=== PATIENT | male | born 1975 | race Caucasian/White ===

== ENCOUNTER 2018-06-25 19:44 | Emergency (ER) | payer OTHER ==
[~2018-06-25] VITALS: Ht 172.7 cm; Wt 90.7 kg
[2018-06-25 21:06] LABS: APPEARANCE,URINE Clear (CLEAR); BILIRUBIN,URINE Negative (NEGATIVE); BLOOD, URINE Small Ery/uL (NEGATIVE); COLOR,URINE Yellow (YELLOW); KETONES,URINE Negative (NEGATIVE); LEUKOCYTE ESTERASE ,URINE Negative (NEGATIVE); NITRITE, URINE Negative (NEGATIVE); PROTEIN,URINE Negative (NEGATIVE); UGLUCOSE Negative (NEGATIVE); UROBILINOGEN,URINE 0.2 EU/dL (0.2)
[2018-06-25 21:12] LABS: BACTERIA,URINE Rare /HPF (None Seen)
[2018-06-25 21:13] LABS: SQUAMOUS EPITHELIAL CELL,UR Rare /HPF (None Seen); WBC,URINE 0-2 /HPF (0-3)
[2018-06-26] MEDS ORDERED: IV NS 0.9% 500 ML BAG IV ONE (00:30)
--- NOTE | 2018-06-26 00:35 | NUR ---
PT C/O LOWER ABD & R TESTICLE PAIN RADIATES DOWN R LEG X 10 DAYS. -N/V/D. PT STATES HE HAS BEEN URINATING MORE FREQUENTLY, DENIES DYSURIA. SKIN WNL. PT IS AAOX4. NO S/S OF ACUTE DISTRESS NOTED. RR EVEN AND UNLABORED. 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 PT SAFETY AND COMFORT MEASURES IN PLACE. BEDSIDE FOR EVAL
[2018-06-26 00:43] LABS: BASOPHILS % (AUTO) 0.4 % (0.0-2.0); HEMATOCRIT 50 % (39-51); HEMOGLOBIN 16.8 g/dL (13.5-17.5); LYMPHOCYTES # (AUTO) 3.3 /CMM (0.8-4.8); LYMPHOCYTES % (AUTO) 31.8 % (20.0-44.0); MEAN CORPUSCULAR HGB CONC 34 g/dl (31.0-36.0); MEAN CORPUSCULAR VOLUME 95 fL (80-96); MONOCYTES # (AUTO) 0.6 /CMM (0.1-1.30); MONOCYTES % (AUTO) 5.3 % (2.0-12.0); NEUTROPHILS # (AUTO) 6.3 /CMM (1.8-8.9); NEUTROPHILS % (AUTO) 60.5 % (43.0-81.0); PLATELET COUNT (AUTO) 224 /CMM (150-450); RDW COEFFICIENT OF VARIATION 12.5 (11.5-15.0); RED BLOOD CELL COUNT(AUTO) 5.26 MIL/uL (4.5-6.0); WHITE BLOOD COUNT (AUTO) 10.4 K/uL (4.3-11.0)
[2018-06-26 01:02] LABS: ALBUMIN 4.3 g/dL (3.4-5.0); BILIRUBIN,DIRECT 0.3 mg/dL (0.0-0.2); BILIRUBIN,TOTAL 1.3 mg/dL (0.2-1.0); CALCIUM, SERUM 8.9 mg/dL (8.5-10.1); CREATININE 0.9 mg/dL (0.6-1.3); POTASSIUM 3.6 mmol/L (3.5-5.1)
[2018-06-26] MEDS ORDERED: KETOROLAC TROMETHAMINE INJ 30 MG/ML VIAL ONE (02:58)
[2018-06-26] MEDS ORDERED: KETOROLAC TROMETHAMINE INJ 30 MG/ML VIAL IV ONE (03:00)
--- NOTE | 2018-06-26 03:09 | NUR ---
Patient discharged to home in stable condition. Written and verbal after care instructions given. Patient verbalizes understanding of instruction.IV removed. Catheter intact and site benign. Pressure and 4x4 applied to site. No bleeding noted.
[2018-06-26 03:10] VITALS: BP 144/79
== END 2018-06-26 03:12 | disposition home or self-care (01) ==
LOC: ER 19:45
DX: R10.84 Generalized abdominal pain (principal); E80.6 Other disorders of bilirubin metabolism; R74.0 Nonspecific elevation of levels of transaminase and lactic acid dehydrogenase [LDH]; F17.200 Nicotine dependence, unspecified, uncomplicated
CPT/HCPCS: 36415; 76705-TC; 80048-TC; 80076-TC; 81000-TC; 83690-TC; 85025-TC; A4606; J1885; J7040; Z7610

== ENCOUNTER 2020-08-30 16:55 | Emergency (ER) | payer OTHER ==
[~2020-08-30] VITALS: Ht 172.7 cm; Wt 69.9 kg
--- NOTE | 2020-08-30 17:12 | NUR ---
BLOOD DRAWN AND SENT TO LAB.
--- NOTE | 2020-08-30 17:21 | NUR ---
Patient discharged to home in stable condition. Written and verbal after care instructions given. Patient verbalizes understanding of instruction.
[2020-08-30 17:41] LABS: BASOPHILS # (AUTO) 0.1 /CMM (0.0-0.2); BASOPHILS % (AUTO) 0.9 % (0.0-2.0); EOSINOPHILS % (AUTO) 0.2 % (0.0-6.0); HEMATOCRIT 51 % (39-51); HEMOGLOBIN 17.4 g/dL (13.5-17.5); LYMPHOCYTES # (AUTO) 1.6 /CMM (0.8-4.8); LYMPHOCYTES % (AUTO) 11.2 % (20.0-44.0); MEAN CORPUSCULAR HGB CONC 34 g/dl (31.0-36.0); MEAN CORPUSCULAR VOLUME 97 fL (80-96); MONOCYTES # (AUTO) 0.6 /CMM (0.1-1.30); MONOCYTES % (AUTO) 4.1 % (2.0-12.0); NEUTROPHILS # (AUTO) 12.1 /CMM (1.8-8.9); NEUTROPHILS % (AUTO) 83.6 % (43.0-81.0); PLATELET COUNT (AUTO) 207 /CMM (150-450); WHITE BLOOD COUNT (AUTO) 14.4 K/uL (4.3-11.0)
[2020-08-30 17:45] LABS: CALCIUM, SERUM 9.2 mg/dL (8.5-10.1); CARBON DIOXIDE 25 mmol/L (21-32); CHLORIDE 101 mmol/L (98-107); CREATININE 0.9 mg/dL (0.6-1.3); GLUCOSE 93 mg/dL (74-106); POTASSIUM 4.5 mmol/L (3.5-5.1); SODIUM SERUM 138 mmol/L (136-145); UREA NITROGEN, BLOOD 16 mg/dL (7-18)
[2020-08-30 17:57] LABS: B-TYPE NATRIURETIC PEPTIDE 95 PG/ML (0-125)
[2020-08-30] MEDS ORDERED: LABETALOL HCL (100MG) 100 MG TABLET ONE (18:03)
[2020-08-30] MEDS ORDERED: LABETALOL HCL (100MG) 100 MG TABLET PO ONE (18:30)
[2020-08-30 18:53] VITALS: BP 131/84
== END 2020-08-30 18:54 | disposition home or self-care (01) ==
LOC: ER 17:02
DX: R07.89 Other chest pain (principal); F11.10 Opioid abuse, uncomplicated; R00.2 Palpitations
CPT/HCPCS: 36415; 71045-TC; 80048-TC; 83880; 84484-TC; 85025-TC

== ENCOUNTER 2020-10-27 20:10 | Emergency (ER) | payer OTHER ==
[~2020-10-27] VITALS: Ht 175.3 cm; Wt 72.6 kg
--- NOTE | 2020-10-27 20:35 | NUR ---
BIBS FOR C/O L SIDED CP 06/05, NON- RADIATING X 2 HRS. "IT STARTED WHEN I WAS PLAYING W/ MY SON" WORSE ON PALPATION AND DEEP BREATHING . - SOB, -N/V, - H/A.
[2020-10-27 20:53] LABS: BASOPHILS # (AUTO) 0.1 /CMM (0.0-0.2); BASOPHILS % (AUTO) 0.6 % (0.0-2.0); HEMATOCRIT 42 % (39-51); HEMOGLOBIN 14.2 g/dL (13.5-17.5); LYMPHOCYTES # (AUTO) 3.8 /CMM (0.8-4.8); LYMPHOCYTES % (AUTO) 36.4 % (20.0-44.0); MEAN CORPUSCULAR HGB CONC 34 g/dl (31.0-36.0); MEAN CORPUSCULAR VOLUME 96 fL (80-96); MONOCYTES # (AUTO) 0.7 /CMM (0.1-1.30); MONOCYTES % (AUTO) 6.4 % (2.0-12.0); NEUTROPHILS # (AUTO) 5.7 /CMM (1.8-8.9); NEUTROPHILS % (AUTO) 55.6 % (43.0-81.0); PLATELET COUNT (AUTO) 236 /CMM (150-450); RED BLOOD CELL COUNT(AUTO) 4.39 MIL/uL (4.5-6.0); WHITE BLOOD COUNT (AUTO) 10.3 K/uL (4.3-11.0)
[2020-10-27 21:03] LABS: CALCIUM, SERUM 8.7 mg/dL (8.5-10.1); CARBON DIOXIDE 27 mmol/L (21-32); CHLORIDE 103 mmol/L (98-107); GLUCOSE 84 mg/dL (74-106); POTASSIUM 3.8 mmol/L (3.5-5.1); SODIUM SERUM 141 mmol/L (136-145); UREA NITROGEN, BLOOD 12 mg/dL (7-18)
--- NOTE | 2020-10-27 22:15 | NUR ---
IV removed. Catheter intact and site benign. Pressure and 4x4 applied to site. No bleeding noted.Patient discharged to home in stable condition. Written and verbal after care instructions given. Patient verbalizes understanding of instruction.
[2020-10-27 22:16] VITALS: BP 131/78
[2020-10-27] MEDS ORDERED: KETOROLAC TROMETHAMINE INJ 30 MG/ML VIAL IV ONE (22:30)
== END 2020-10-27 22:16 | disposition home or self-care (01) ==
LOC: ER 20:14
DX: R07.89 Other chest pain (principal)
CPT/HCPCS: 36415; 71045-TC; 80048-TC; 84484-TC; 85025-TC

== ENCOUNTER 2021-10-20 16:53 | Emergency (ER) | payer MEDICAID, OTHER ==
[~2021-10-20] VITALS: Ht 175.3 cm; Wt 86.2 kg
[2021-10-20 16:53] VITALS: BP 156/105
[2021-10-20] MEDS ORDERED: CLIN300C12 PO (17:44)
== END 2021-10-20 17:59 | disposition home or self-care (01) ==
LOC: ER 16:54
DX: L03.116 Cellulitis of left lower limb (principal); L73.1 Pseudofolliculitis barbae; F17.200 Nicotine dependence, unspecified, uncomplicated

== ENCOUNTER 2022-11-09 16:27 | Emergency (ER) | payer MEDICAID ==
[~2022-11-09] VITALS: Ht 167.6 cm; Wt 81.6 kg
[~2022-11-09 16:27] MED LIST: CLIN300C12 PO
--- NOTE | 2022-11-09 16:40 | NUR ---
"Im Having Chest Pain and feel Dizzy. Was seen in 4D ago and was told I have a blood infection"
--- NOTE | 2022-11-09 17:15 | NUR ---
established iv line left ac 20 g ,
--- NOTE | 2022-11-09 17:15 | NUR ---
blood sample obtained sent to lab
[2022-11-09 17:36] LABS: BASOPHILS % (AUTO) 0.3 % (0.0-2.0); EOSINOPHILS % (AUTO) 1.2 % (0.0-6.0); HEMATOCRIT 47 % (39-51); HEMOGLOBIN 15.7 g/dL (13.5-17.5); LYMPHOCYTES # (AUTO) 4.2 K/uL (0.8-4.8); LYMPHOCYTES % (AUTO) 36.2 % (20.0-44.0); MEAN CORPUSCULAR HGB CONC 34 g/dl (31.0-36.0); MEAN CORPUSCULAR VOLUME 93 fL (80-96); MONOCYTES # (AUTO) 0.6 K/uL (0.1-1.30); MONOCYTES % (AUTO) 5.4 % (2.0-12.0); NEUTROPHILS # (AUTO) 6.5 K/uL (1.8-8.9); NEUTROPHILS % (AUTO) 56.9 % (43.0-81.0); PLATELET COUNT (AUTO) 227 K/uL (150-450); RED BLOOD CELL COUNT(AUTO) 5.01 MIL/uL (4.5-6.0); WHITE BLOOD COUNT (AUTO) 11.5 K/uL (4.3-11.0)
--- NOTE | 2022-11-09 17:43 | NUR ---
urine sample obtained
[2022-11-09 17:50] LABS: BILIRUBIN,URINE NEGATIVE (NEGATIVE); COLOR,URINE YELLOW (YELLOW); LEUKOCYTE ESTERASE ,URINE NEGATIVE (NEGATIVE); NITRITE, URINE NEGATIVE (NEGATIVE); PROTEIN,URINE NEGATIVE (NEGATIVE); UGLUCOSE NEGATIVE (NEGATIVE); UROBILINOGEN,URINE 0.2 EU/dL (0.2)
[2022-11-09 18:03] LABS: BACTERIA,URINE None seen /HPF (None Seen); WBC,URINE 0-2 /HPF (0-3)
[2022-11-09 18:04] LABS: SQUAMOUS EPITHELIAL CELL,UR 0-2 /HPF (None Seen)
[2022-11-09 18:10] LABS: CARBON DIOXIDE 24 mmol/L (21-32); CHLORIDE 103 mmol/L (98-107); CREATININE 0.7 mg/dL (0.6-1.3); GLUCOSE 89 mg/dL (74-106); POTASSIUM 3.5 mmol/L (3.5-5.1); SODIUM SERUM 140 mmol/L (136-145); UREA NITROGEN, BLOOD 4 mg/dL (7-18)
[2022-11-09] MEDS ORDERED: LORAZEPAM INJ 2 MG/ML VIAL IV ONE (18:30)
[2022-11-09] MEDS ORDERED: KETOROLAC TROMETHAMINE INJ 30 MG/ML VIAL IV ONE (18:30)
[2022-11-09] MEDS ORDERED: LORAZEPAM INJ 2 MG/ML VIAL ONE (18:34)
[2022-11-09] MEDS ORDERED: KETOROLAC TROMETHAMINE 15 MG/ML VIAL ONE (18:34)
--- NOTE | 2022-11-09 18:44 | NUR ---
medicated as ordered.
--- NOTE | 2022-11-09 18:44 | NUR ---
md at bed side , patient waiting to be discharge
--- NOTE | 2022-11-09 19:02 | NUR ---
IV removed. Catheter intact and site benign. Pressure and 4x4 applied to site. No bleeding noted.
--- NOTE | 2022-11-09 19:02 | NUR ---
Patient discharged to home in stable condition. Written and verbal after care instructions given. Patient verbalizes understanding of instruction.
[2022-11-09 19:03] VITALS: BP 151/98
== END 2022-11-09 19:03 | disposition home or self-care (01) ==
LOC: ER 16:33
DX: R07.89 Other chest pain (principal); F17.200 Nicotine dependence, unspecified, uncomplicated; Z79.899 Other long term (current) drug therapy
CPT/HCPCS: 99285; 96374; 71045; 96375; 93005 ×2; 85025; 80048; 81001; 36415; 84484; 83880; J2060; J1885

== ENCOUNTER 2023-07-08 23:01 | Emergency (ER) | payer MEDICAID ==
[~2023-07-08] VITALS: Ht 172.7 cm; Wt 95.3 kg
[2023-07-09] LABS: BASOPHILS % (AUTO) 0.4 % (0.0-2.0); EOSINOPHILS # (AUTO) 0.2 K/uL (0.0-0.7); EOSINOPHILS % (AUTO) 1.5 % (0.0-6.0); HEMATOCRIT 48 % (39-51); HEMOGLOBIN 16.4 g/dL (13.5-17.5); LYMPHOCYTES # (AUTO) 3.8 K/uL (0.8-4.8); LYMPHOCYTES % (AUTO) 29.9 % (20.0-44.0); MEAN CORPUSCULAR HEMOGLOBIN 32 PG (26.0-33.0); MEAN CORPUSCULAR HGB CONC 34 g/dl (31.0-36.0); MEAN CORPUSCULAR VOLUME 93 fL (80-96); MONOCYTES # (AUTO) 0.7 K/uL (0.1-1.30); MONOCYTES % (AUTO) 5.5 % (2.0-12.0); NEUTROPHILS # (AUTO) 7.9 K/uL (1.8-8.9); NEUTROPHILS % (AUTO) 62.7 % (43.0-81.0); PLATELET COUNT (AUTO) 239 K/uL (150-450); RED BLOOD CELL COUNT(AUTO) 5.14 MIL/uL (4.5-6.0); RED CELL DISTRIBUTION WIDTH 12.9 % (11.5-15.0); WHITE BLOOD COUNT (AUTO) 12.6 K/uL (4.3-11.0)
[2023-07-09 00:09] LABS: INR 1.1 (0.91-1.10); PARTIAL THROMBOPLASTIN TIME 28.9 SEC (24.3-34.3); PROTHROMBIN TIME 11.6 SECS (9.2-11.1)
[2023-07-09 00:11] LABS: ALANINE AMINOTRANSFERASE 51 U/L (12-78); ALBUMIN 4.6 g/dL (3.4-5.0); ALKALINE PHOSPHATASE 60 U/L (46-116); ASPARTATE AMINOTRANSFERASE 19 U/L (15-37); BILIRUBIN,DIRECT 0.2 mg/dL (0.0-0.2); BILIRUBIN,TOTAL 0.7 mg/dL (0.2-1.0); CALCIUM, SERUM 9.7 mg/dL (8.5-10.1); CARBON DIOXIDE 25 mmol/L (21-32); CHLORIDE 102 mmol/L (98-107); CREATININE 0.8 mg/dL (0.6-1.3); GLUCOSE 84 mg/dL (74-106); POTASSIUM 3.6 mmol/L (3.5-5.1); SODIUM SERUM 138 mmol/L (136-145); TOTAL PROTEIN, SERUM 8.7 g/dL (6.4-8.2); UREA NITROGEN, BLOOD 11 mg/dL (7-18)
[2023-07-09 00:50] VITALS: BP 145/105; TEMP 97.8; O2SAT 99
== END 2023-07-09 00:50 | disposition home or self-care (01) ==
LOC: ER 23:06
DX: R07.89 Other chest pain (principal); F17.210 Nicotine dependence, cigarettes, uncomplicated; Z79.899 Other long term (current) drug therapy
CPT/HCPCS: 36415; 71045-TC; 80048-TC; 80076-TC; 84484-TC; 85025-TC; 85730-TC

== ENCOUNTER 2024-12-24 15:12 | Emergency (ER) | payer MEDICAID ==
[~2024-12-24] VITALS: Ht 172.7 cm; Wt 99.8 kg
[2024-12-24 15:26] VITALS: BP 147/101; TEMP 98.3
[2024-12-24 16:05] VITALS: O2SAT 97
== END 2024-12-24 16:06 | disposition home or self-care (01) ==
LOC: ER 15:28
DX: R22.1 Localized swelling, mass and lump, neck (principal); F17.200 Nicotine dependence, unspecified, uncomplicated; Z79.899 Other long term (current) drug therapy